=== PATIENT | male | born 1970 | race Two or more races ===

== ENCOUNTER 2016-11-27 21:51 | Emergency (ER) | payer BC, MEDICAID ==
[2016-11-27 22:39] VITALS: BP 134/68
--- NOTE | 2016-11-27 23:15 | EDM.PDOC ---
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) PCP Dr Sanders pt willing to wear long leg immobilizer which should help with healing, able to wear it at work Allergies/ADRs: Allergies No Known Allergies Allergy (Verified 11/27/16 22:30) Home Medications: Ambulatory Orders NK [No Known Home Meds] 08/11/16 [Confirmed 11/27/16] Past Medical History - Past Health History Medical/Surgical History: Denies Medical/Surgical History Musculoskeletal History: Reports: Other (see below) Other Musculoskeletal History: FINGER LACERATION - Infectious Disease History Infectious Disease History: Reports: Chicken pox Social & Family History - Tobacco Use Smoking Status *Q: Never Smoker Years of Tobacco use: 5 Second Hand Smoke Exposure: No - Caffeine Use Caffeine Use: Reports: Soda - Recreational Drug Use Recreational Drug Use: No Review of Systems - Review of Systems Review Of Systems: See Below Constitutional: Reports: no symptoms Eyes: Reports: no symptoms Ears: Reports: no symptoms Nose: Reports: no symptoms Mouth/Throat: Reports: no symptoms Respiratory: Reports: No Symptoms Cardiovascular: Reports: no symptoms GI/Abdominal: Reports: No symptoms Genitourinary: Reports: no symptoms Musculoskeletal: Reports: joint pain Skin: Reports: no symptoms Neurological: Reports: No Symptoms Psychiatric: Reports: no symptoms Trauma Exam - Physical Exam Exam: See Below Exam Limited By: No limitations General Appearance: Reports: alert, WD/WN, mild distress Head: Reports: atraumatic, normocephalic Respiratory Exam: Reports: no respiratory distress Cardiovascular: Reports: regular rate, rhythm Extremities: Reports: other (holding R knee straight, able to put wt on it, no PT anywhere on knee, MCL/LCL NT, no effusion, medial facet patella NT, collateral ligaments stable, Marcelino neg, drawer neg, Jillian neg, does have pain however with flexion to 90 degrees, pain is anterior (no radiation)) Course - Vital Signs Last Recorded V/S: Last Vital Signs Temp 36.8 C 11/27/16 22:31 Pulse 93 11/27/16 22:31 Resp 18 11/27/16 22:31 BP 134/68 11/27/16 22:31 Pulse Ox 100 11/27/16 22:31 - Orders/Labs/Meds Orders: Active Orders 24 hr Category Date Time Status Immobilizer [RC] ASDIRECTED Care 11/27/16 23:09 Ordered Knee 3V Rt [CR] Stat Exams 11/27/16 22:32 Taken - Re-Assessments/Exams Free Text/Narrative Re-Assessment/Exam: 11/27/16 23:13 pt reports hyperextending knee altho it is more likely he twisted it, doubt internal injury Departure - Departure Time of Disposition: 23:14 Disposition: DC/Tfer to [facility] Condition: good Clinical Impression: Knee sprain Instructions: Knee Sprain Forms: ED Department Discharge Additional Instructions: For pain and inflammation, take ibuprofen 200 mg 3 tabs and acetaminophen 325 mg 2 tabs 4 times a day for 1 week. To allow it to heal, use knee immobilizer for 48 hours, longer if needed. Use ice for 10 minutes every 2 hours while awake as needed. May work in 2 days. See your doctor in 3 days. Return to ED if you are feeling worse. Call your Physician or Return to Emergency Department if: * Your condition worsens in any way. * You develop fever greater than 100.4. * You have vomiting that does not stop with medications. * You have pain that is not controlled with medications. - My Orders Last 24 Hours: My Active Orders 11/27/16 22:32 Knee 3V Rt [CR] Stat 11/27/16 23:09 Immobilizer [RC] ASDIRECTED - Assessment/Plan Last 24 Hours: My Active Orders 11/27/16 22:32 Knee 3V Rt [CR] Stat 11/27/16 23:09 Immobilizer [RC] ASDIRECTED
--- NOTE | 2016-11-29 10:31 | CR ---
INDICATION: Fell, hyperextended knee. RIGHT KNEE: Three views of the right knee were obtained 11/27/2016 and compared with 08/11/2016, revealing no significant interval change, fracture, or dislocation. Femorotibial joint spaces are well maintained. Some very minimal hypertrophic change is again noted, unchanged, at the medial intercondylar spine. IMPRESSION: No acute fracture or dislocation. MTDD
== END 2016-11-27 23:20 | disposition home or self-care (01) ==
LOC: FB.ED 21:51
DX: S83.91XA Sprain of unspecified site of right knee, initial encounter (principal); X50.1XXA Overexertion from prolonged static or awkward postures, initial encounter
CPT/HCPCS: 73562-RT; 99283

== ENCOUNTER 2017-03-29 18:25 | Emergency (ER) | payer BC, MEDICAID ==
[2017-03-29] MEDS ORDERED: Lidocaine 1% 20 ML MDV INJECT ONE (18:30)
--- NOTE | 2017-03-29 19:32 | EDM.PDOC ---
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 His tetanus is UTD. Here for repair of the resulting laceration. Onset: Today Onset Date: 03/29/17 Onset Time: 18:00 Duration: Minutes:, Constant Location: Reports: Upper Extremity, Left Quality: Reports: Burning Severity: Mild Improves with: Reports: None Worsens with: Reports: Other (touching wound), Movement Context: Reports: Trauma, Other (cut on sharp moving cover of the start on his pull start mower. Cover over this part was off. ) Associated Symptoms: Reports: No Other Symptoms Treatments FORMULA MAKER: Reports: Other (see below) (none) Right Hand Pain Score (Numeric/FACES): 7 - Related Data Allergies Allergy/AdvReac Type Severity Reaction Status Date / Time No Known Allergies Allergy Verified 11/27/16 22:30 Home Meds: Home Meds NK [No Known Home Meds] 08/11/16 [History] Past Medical History - Past Health History Medical/Surgical History: Denies Medical/Surgical History Musculoskeletal History: Reports: Other (See Below) Other Musculoskeletal History: FINGER LACERATION - Infectious Disease History Infectious Disease History: Reports: Chicken Pox Social & Family History - Family History Family Medical History: Noncontributory - Tobacco Use Smoking Status *Q: Never Smoker Years of Tobacco use: 5 Second Hand Smoke Exposure: No - Caffeine Use Caffeine Use: Reports: Soda - Recreational Drug Use Recreational Drug Use: No ED ROS GENERAL - Review of Systems Review Of Systems: See Below Constitutional: Reports: No Symptoms Musculoskeletal: Reports: No Symptoms Skin: Reports: Wound (L hand) Neurological: Reports: No Symptoms Psychiatric: Reports: No Symptoms ED EXAM, SKIN/RASH Exam: See Below Exam Limited By: No Limitations General Appearance: Alert, WD/WN, No Apparent Distress Extremities: Other (L hand laceration) Neurological: Alert, Oriented, CN II-XII Intact, Normal Cognition, No Motor/ Sensory Deficits Psychiatric: Normal Affect, Normal Mood Skin: Warm, Dry, Normal Color, No Rash, Wound/Incision (flap laceration to the left thenar emminence measuring 6 cm in total length. ) Location, Skin: Upper Extremity, Left Characteristics: Other (flap laceration) ED SKIN PROCEDURES - Laceration/Wound Repair Left Hand Appearance: Subcutaneous, Irregular (flap), Clean Distal NVT: Neuro & Vascular Intact, No Tendon Injury Anesthetic Type: Local Local Anesthesia - Lidocaine (Xylocaine): 1% Plain (8 ml) Local Anesthetic Volume: Other (8 ml) Skin Prep: Other (surgical scrub) Exploration/Debridement/Repair: Wound Explored, Minimal Debridement Closed with: Sutures Suture Size: other (5-0 Ethilon) # of Sutures: 10 Suture Type: Nylon, Simple Drain Placement: No Sterile Dressing Applied: Nurse Tetanus Status Addressed: Yes Complications: No Course - Vital Signs Last Recorded V/S: Last Vital Signs Temp 36.2 C 03/29/17 19:10 Pulse 88 03/29/17 19:10 Resp 16 03/29/17 19:10 BP 134/89 03/29/17 19:10 Pulse Ox 98 03/29/17 19:10 Departure - Departure Time of Disposition: 19:39 Disposition: Home, Self-Care 01 Condition: Good Clinical Impression: Laceration of hand Qualifiers: Encounter type: initial encounter Foreign body presence: without foreign body Laterality: left Qualified Code(s): S61.412A - Laceration without foreign body of left hand, initial encounter - Discharge Information Referrals: Christiano Okeefe MD [Primary Care Provider] - Forms: ED Department Discharge, ED Return to Work/School Form Additional Instructions: Clean wound twice daily with soap and water. Dry. Apply Bacitracin ointment and a new dressing. Elevate tonight to reduce bleeding. Make an appt for stitch removal in the clinic for 9 days from now. Recheck sooner for signs of infection. Take actaminophen or ibuprofen as needed for pain relief. Must keep wound clean for 3 days minimum.
[2017-03-29 19:38] VITALS: BP 122/97
== END 2017-03-29 19:36 | disposition home or self-care (01) ==
LOC: FB.ED 18:25
DX: S61.412A Laceration without foreign body of left hand, initial encounter (principal); W28.XXXA Contact with powered lawn mower, initial encounter; Y92.009 Unspecified place in unspecified non-institutional (private) residence as the place of occurrence of the external cause
CPT/HCPCS: 12001; 12002; 99282

== ENCOUNTER 2020-02-18 13:42 | Emergency (ER) | payer OTHER, BC ==
--- NOTE | 2020-02-18 13:57 | EDM.PDOC ---
ED HPI GENERAL MEDICAL PROBLEM - General Stated Complaint: HEAD LACERATION Time Seen by Provider: 02/18/20 13:45 Source of Information: Reports: Patient History Limitations: Reports: No Limitations - History of Present Illness INITIAL COMMENTS - FREE TEXT/NARRATIVE: pt has accidental scalp lac while at work, hit head with a metallic roof , no LOC, no other injuries or any other medical concerns. tells me he had tetanus vaccine about 6 months ago. - Related Data Allergies Allergy/AdvReac Type Severity Reaction Status Date / Time No Known Allergies Allergy Verified 03/29/17 19:40 Home Meds: Home Meds NK [No Known Home Meds] 08/11/16 [History] Past Medical History - Past Health History Medical/Surgical History: Denies Medical/Surgical History Musculoskeletal History: Reports: Other (See Below) Other Musculoskeletal History: FINGER LACERATION - Infectious Disease History Infectious Disease History: Reports: Chicken Pox Social & Family History - Family History Family Medical History: Noncontributory - Caffeine Use Caffeine Use: Reports: Soda ED ROS GENERAL - Review of Systems Review Of Systems: See Below Constitutional: Reports: No Symptoms HEENT: Reports: No Symptoms Respiratory: Reports: No Symptoms Cardiovascular: Reports: No Symptoms GI/Abdominal: Reports: No Symptoms ED EXAM, GENERAL - Physical Exam Exam: See Below Exam Limited By: No Limitations General Appearance: Alert, No Apparent Distress Eye Exam: Bilateral Eye: Normal Inspection Ears: Normal External Exam, Normal Canal Nose: Normal Inspection Throat/Mouth: Normal Inspection, Normal Oropharynx Head: Atraumatic, Normocephalic, Other (pt has a 10 cm clean scalp lac crossing midline at top of his head. ) Neck: Normal Inspection, Supple, Non-Tender, Full Range of Motion Respiratory/Chest: No Respiratory Distress, Lungs Clear, Normal Breath Sounds Cardiovascular: Normal Peripheral Pulses, Regular Rate, Rhythm ED GENERAL MEDICAL PROCEDURES - Laceration/Wound Repair Head Appearance: Subcutaneous, Clean Skin Prep: Saline Saline irrigation (cc's): 10 Exploration/Debridement/Repair: Wound Explored, No Foreign Material Found Closed with: Anton # of Sutures: 11 Sterile Dressing Applied: Nurse Tetanus Status Addressed: Yes Complications: No Course - Vital Signs Text/Narrative:: wound was cleaned and stapled , usual wound care was recommended. f/u with PCP in 5-6 days. Departure - Departure Time of Disposition: 14:03 Disposition: Home, Self-Care 01 Clinical Impression: Scalp laceration - Discharge Information Referrals: Christiano Okeefe MD [Primary Care Provider] -
[2020-02-18 14:11] VITALS: BP 144/89; PULSE 96
== END 2020-02-18 14:33 | disposition home or self-care (01) ==
LOC: FB.ED 13:42
DX: S01.01XA Laceration without foreign body of scalp, initial encounter (principal); W20.8XXA Other cause of strike by thrown, projected or falling object, initial encounter
CPT/HCPCS: 12004; 99282

== ENCOUNTER 2021-05-10 11:26 | Emergency (ER) | payer BC ==
--- NOTE | 2021-05-10 13:13 | EDM.PDOC ---
ED HPI GENERAL MEDICAL PROBLEM - General Chief Complaint: General Stated Complaint: COVID SYMPTOMS Time Seen by Provider: 05/10/21 12:30 Source of Information: Reports: Patient History Limitations: Reports: No Limitations - History of Present Illness INITIAL COMMENTS - FREE TEXT/NARRATIVE: c/o COVID exposure works for [employer], co-worker tested positive yesterday has had fever and loose stools and myalgias for past 2 days no h/o pul/CV/renal problems, no regular meds rare cough lives with (who has sxs) and 3 children, who have no sxs and are home schooled - Related Data Allergies Allergy/AdvReac Type Severity Reaction Status Date / Time No Known Allergies Allergy Verified 02/18/20 14:09 Home Meds: Home Meds NK [No Known Home Meds] 08/11/16 [History] Past Medical History - Past Health History Medical/Surgical History: Denies Medical/Surgical History Musculoskeletal History: Reports: Other (See Below) Other Musculoskeletal History: FINGER LACERATION - Infectious Disease History Infectious Disease History: Reports: Chicken Pox Social & Family History - Family History Family Medical History: No Pertinent Family History - Tobacco Use Tobacco Use Status *Q: Never Tobacco User Second Hand Smoke Exposure: Yes - Caffeine Use Caffeine Use: Reports: Coffee - Recreational Drug Use Recreational Drug Use: No ED ROS GENERAL - Review of Systems Review Of Systems: See Below Constitutional: Reports: Fever, Weakness HEENT: Reports: No Symptoms Respiratory: Reports: No Symptoms Cardiovascular: Reports: No Symptoms Endocrine: Reports: No Symptoms GI/Abdominal: Reports: No Symptoms : Reports: No Symptoms Musculoskeletal: Reports: Muscle Pain Skin: Reports: No Symptoms Neurological: Reports: No Symptoms Psychiatric: Reports: No Symptoms Hematologic/Lymphatic: Reports: No Symptoms Immunologic: Reports: No Symptoms ED EXAM, GENERAL - Physical Exam Exam: See Below Exam Limited By: No Limitations General Appearance: Alert, WD/WN, No Apparent Distress, Other (alert, nonill, no cough, cooperative, normal voice) Eye Exam: Bilateral Eye: Normal Inspection, PERRL Ears: Hearing Grossly Normal Nose: Normal Inspection Throat/Mouth: Normal Inspection, Normal Lips, Normal Teeth, Normal Oropharynx, Normal Voice, No Airway Compromise Head: Atraumatic, Normocephalic Neck: Normal Inspection, Supple, Non-Tender, Full Range of Motion. No: Lymphadenopathy (R), Lymphadenopathy (L) Respiratory/Chest: No Respiratory Distress, Lungs Clear, Chest Non-Tender Cardiovascular: Regular Rate, Rhythm, No Edema, No JVD, No Murmur GI/Abdominal: Soft, Non-Tender, No Distention Back Exam: Normal Inspection, Full Range of Motion. No: CVA Tenderness (R), CVA Tenderness (L) Extremities: Normal Inspection, Normal Range of Motion, Non-Tender, No Pedal Edema Neurological: Alert, Oriented, CN II-XII Intact, Normal Cognition, No Motor/Sensory Deficits Psychiatric: Normal Affect, Normal Mood Skin Exam: Warm, Dry, Intact, Normal Color, No Rash Lymphatic: No Adenopathy Course - Vital Signs Last Recorded V/S: Last Vital Signs Temp 37.6 C 05/10/21 11:35 Pulse 95 05/10/21 11:35 Resp 18 05/10/21 11:35 BP 134/100 H 05/10/21 11:35 Pulse Ox 95 05/10/21 11:35 - Orders/Labs/Meds Labs: Laboratory Tests 05/10/21 Range/Units 11:55 SARS-CoV-2 RNA (JANI) Positive H (NEGATIVE) - Re-Assessments/Exams Free Text/Narrative Re-Assessment/Exam: 05/10/21 13:15 typical COVID sxs with low grade temp and mild dec'd PO, PE is neg, unlikely to get more ill, pt's main concern was myalgias Departure - Departure Time of Disposition: 13:08 Disposition: Home, Self-Care 01 Condition: Good Clinical Impression: COVID-19 virus infection - Discharge Information *PRESCRIPTION DRUG MONITORING PROGRAM REVIEWED*: Not Applicable *COPY OF PRESCRIPTION DRUG MONITORING REPORT IN PATIENT [place]: Not Applicable Instructions: COVID-19, Symptoms of COVID-19 - CDC (10/06/2020) Additional Instructions: Get adequate rest. Maintain fluids. No work until your fever is gone for 7 days. Check your temperature every morning before you take ibuprofen or acetaminophen. For pain and inflammation, take ibuprofen 200 mg 3 tabs and acetaminophen 325 mg 3 tabs 4 times a day for 5-7 days, longer if needed. You and 3 children should be tested. Use good handwashing. Self-quarantine at home. Maintain 6 foot distance from others, including family. Obtain a pulse oximeter at pharmacy, grocery store or [employer] and check your oxygen level every morning. Return to Emergency Department if you oxygen level is 88% or less. Sepsis Event Note (ED) - Evaluation Sepsis Screening Result: No Definite Risk - Focused Exam Vital Signs: Vital Signs Temp Pulse Resp BP Pulse Ox 05/10/21 11:35 37.6 C 95 18 134/100 H 95
[2021-05-10 13:32] VITALS: BP 148/92; PULSE 88
== END 2021-05-10 13:30 | disposition home or self-care (01) ==
LOC: FB.ED 11:26
DX: U07.1 COVID-19 (principal)
CPT/HCPCS: 99284; U0002